=== PATIENT | female | born 2000 ===

== ENCOUNTER 2021-03-16 01:07 | Inpatient (IN) | payer OTHER ==
[~2021-03-16] VITALS: Ht 162.6 cm; Wt 98.9 kg
[2021-03-16] MEDS ORDERED: CHILDREN'S ASPI81 MG PO (01:44)
[2021-03-16] MEDS ORDERED: PRENATAL CAPLE1 EAC1 (01:45)
== END 2021-03-17 10:21 | disposition home or self-care (01) | DRG 833 ==
LOC: OBS/DEL 01:07 → LDR 17:23 → OBS/DEL 17:23 → LDR 03-17 10:21
PROVIDERS: ADMIT Obstetrics & Gynecology; ATTEND Obstetrics & Gynecology
PROC: 4A1HXFZ Monitoring of Products of Conception, Cardiac Rhythm, External Approach (ICD-10-PCS; principal; 2021-03-16)
PROC: BY4FZZZ Ultrasonography of Third Trimester, Single Fetus (ICD-10-PCS; 2021-03-16)
DX: O46.8X3 Other antepartum hemorrhage, third trimester (principal); Z3A.34 34 weeks gestation of pregnancy

== ENCOUNTER 2021-04-16 06:15 | Inpatient (IN) | payer OTHER ==
[~2021-04-16] VITALS: Ht 162.6 cm; Wt 100.7 kg
[~2021-04-16 06:15] MED LIST: CHILDREN'S ASPI81 MG PO; PRENATAL CAPLE1 EAC1
== END 2021-04-19 15:54 | disposition home or self-care (01) | DRG 788 ==
LOC: OB/GYN 06:15 → LDR 06:15 → OB/GYN 21:57
PROVIDERS: ADMIT Obstetrics & Gynecology; ATTEND Obstetrics & Gynecology
PROC: 4A1HXFZ Monitoring of Products of Conception, Cardiac Rhythm, External Approach (ICD-10-PCS; 2021-04-16)
PROC: 3E033VJ Introduction of Other Hormone into Peripheral Vein, Percutaneous Approach (ICD-10-PCS; 2021-04-16)
PROC: 10D00Z1 Extraction of Products of Conception, Low, Open Approach (ICD-10-PCS; principal; 2021-04-16 18:30)
DX: O62.1 Secondary uterine inertia (principal); O61.0 Failed medical induction of labor; Z3A.39 39 weeks gestation of pregnancy; Z37.0 Single live birth